=== PATIENT | male | born 1940 | race Caucasian/White ===

== ENCOUNTER 2016-11-01 09:15 | Inpatient (IN) | payer MEDICARE, OTHER ==
[2016-12-28] MEDS ORDERED: IV START KIT ONE (05:36)
[2016-12-28] MEDS ORDERED: LACTATED RINGERS 1,000 ML ONE (05:36)
[2016-12-28] MEDS ORDERED: CEFAZOLIN SODIUM 2 GRAM PREMIX 100 ML IV PRN (07:30)
[2016-12-28] MEDS ORDERED: CEFAZOLIN SODIUM 2 GRAM PREMIX 100 ML IV ONE (08:21)
[2016-12-28] MEDS ORDERED: EPINEPHRINE 1 MG/ML 1ML AMP ONE (09:04)
[2016-12-28] MEDS ORDERED: METHYLENE BLUE 1% 1ML VIAL ONE (09:05)
[2016-12-28] MEDS ORDERED: NERVE BLOCK PROCEDURAL TRAY 1 EACH ONE ×2 (09:47→16:45)
[2016-12-28] MEDS ORDERED: SODIUM CHLORIDE 0.9% FLUSH 10 ML ONE (09:47)
[2016-12-28] MEDS ORDERED: MIDAZOLAM HCL 5 MG/5 ML VIAL ONE (09:48)
[2016-12-28] MEDS ORDERED: BUPIVACAINE 0.25% (PRES FREE) 30 ML VIAL ONE (11:06)
[2016-12-28] MEDS ORDERED: ROCURONIUM BROMIDE 10 MG/ML DOSE IV ONE (12:13)
[2016-12-28] MEDS ORDERED: ROPIVACAINE 0.5% 30 ML VIAL ONE ×2 (12:13→16:44)
[2016-12-28] MEDS ORDERED: PROPOFOL 20 ML IV ONE (12:13)
[2016-12-28] MEDS ORDERED: ON-Q PUMP/ROPIVACAINE 0.2% 450 ML in PREMIX BAG 1 EACH NB PRN (12:22)
[2016-12-28] MEDS ORDERED: LACTATED RINGERS 1,000 ML IV SCH ×2 (12:30→16:45)
[2016-12-28] MEDS ORDERED: EPHEDRINE SULFATE UD SYR 25 MG 25 MG/5 ML SYRINGE IV ONE (13:06)
[2016-12-28] MEDS ORDERED: METOCLOPRAMIDE HCL 5 MG/ML 2ML VIAL ONE (14:08)
[2016-12-28] MEDS ORDERED: MORPHINE SULFATE 10 MG/ML SYRINGE ONE (14:08)
[2016-12-28] MEDS ORDERED: ONDANSETRON 4 MG/2ML 2 ML VIAL ONE (15:25)
--- NOTE | 2016-12-28 15:39 | RAD ---
SHOULDER-LEFT 1 VIEW HISTORY: Left total shoulder arthroplasty intraoperative fluoroscopy. COMPARISONS: Plain films 08/18/2016 FINDINGS: 3 overhead fluoroscopic images are provided for review. These images demonstrate placement of a reverse delta prosthesis. Study is limited with respect to osseous detail given fluoroscopic technique. Fluoroscopy time: 5.2 seconds IMPRESSION: Intraoperative fluoroscopy as above. Please see orthopedist note regarding the procedure for further details.
--- NOTE | 2016-12-28 15:47 | PCMBPN ---
Brief Post Op Note: Date of Procedure: 12/28/16 Preoperative Diagnosis: 1. left shoulder rotator cuff arthropathy, biceps tendonitis, and left index finger mass Postoperative Diagnosis: 1. left shoulder rotator cuff arthropathy, biceps tendonitis and subluxation, and left index finger ganglion cyst Procedure: left shoulder reverse shoulder arthroplasty, biceps tenodesis, and left index finger ganglion cyst excision Surgeon: Ranjeet Pimentel MD Assist: Walker LAND CLEARER Anesthesia: GETA, left intrascalene nerve block and catheter for post-op pain relief, 7mL 0.25% marcaine without epi injected by the left index finger Findings: pt had a left index finger ganglion cyst. The patient had a cemented left DJO RSA (humeral stem) with a 8mm cement restrictor, size 6 humeral stem, neutral socket and neutral liner, 32N glenosphere and standard basline with screws 30mm, 30mm, 18mm and 26 mm Condition: extubated, stable vitals, transferred to pacu Complications: None IV Fluids: 2100 mLs of LR Urine Output: 300 mLs Estimated Blood Loss: 150 mLs Tourniquet Time: [N/A] Specimens: finger mass sent to path Implants: See above Drains: [N/A] PLAN: NWB on the LUE. SLing at all times. Oxycodone for pain control and Ancef x 24 hours post-op
[2016-12-28] MEDS ORDERED: ON-Q PUMP/ROPIVACAINE 0.2% 450 ML ONE (15:57)
[2016-12-28] MEDS ORDERED: MORPHINE SULFATE 4 MG/ML SYRINGE ONE ×2 (16:09→16:27)
[2016-12-28] MEDS ORDERED: ATROPINE SULFATE 0.4 MG/1 ML VIAL IV PRN (16:34)
[2016-12-28] MEDS ORDERED: ONDANSETRON 4 MG/2ML 2 ML VIAL IV PRN ×2 (16:34→18:00)
[2016-12-28] MEDS ORDERED: MEPERIDINE 25 MG/ML SYRINGE IV PRN (16:34)
[2016-12-28] MEDS ORDERED: HYDROMORPHONE HCL 1 MG/ML SYRINGE IV PRN (16:34)
[2016-12-28] MEDS ORDERED: LABETALOL HCL 5 MG/ML 20ML VIAL IV PRN (16:34)
[2016-12-28] MEDS ORDERED: PROMETHAZINE HCL 25 MG/ML VIAL IM PRN (16:34)
[2016-12-28] MEDS ORDERED: NALOXONE HCL 0.4 MG/ML VIAL IV PRN (16:34)
[2016-12-28] MEDS ORDERED: FENTANYL 100 MCG/2 ML VIAL ONE (16:49)
[2016-12-28] MEDS ORDERED: MIDAZOLAM HCL 1 MG/ML 2ML VIAL ONE (16:49)
[2016-12-28] MEDS ORDERED: MORPHINE SULFATE 10 MG/ML SYRINGE IV ONE (16:51)
[2016-12-28] MEDS ORDERED: MORPHINE SULFATE 4 MG/ML SYRINGE IV ONE (17:07)
--- NOTE | 2016-12-28 17:38 | RAD ---
Name: MOLLY GARDNER Exam: Left shoulder Comparison: Multiple prior Clinical history: Postoperative exam Findings: 3 radiographs of left shoulder are submitted. Bone density is within normal limits. There is been arthroplasty of the left glenohumeral joint. Prosthetic components. In normal position. There is no fracture or dislocation. Impression: Left shoulder arthroplasty. Please see operative report for further information.
[2016-12-28] MEDS ORDERED: MAGNESIUM HYDROXIDE 30 ML UDCUP PO PRN (18:00)
[2016-12-28] MEDS ORDERED: DIPHENHYDRAMINE HCL 50 MG/1 ML VIAL IV PRN (18:00)
[2016-12-28] MEDS ORDERED: BISACODYL 10 MG SUP PR PRN (18:00)
[2016-12-28 19:01] VITALS: BMI 30.5
[2016-12-28] MEDS ORDERED: PUMP TUBING ONE (19:29)
[2016-12-28] MEDS: CEFAZOLIN SODIUM 2 GRAM DUPLEX 2 G in Premix (D5W) 50 ml 1 EACH IV SCH (19:35)
[2016-12-28] MEDS: LACTATED RINGERS 1,000 ML IV SCH (19:35)
[2016-12-28] MEDS: DOCUSATE SODIUM 100 MG CAPSULE PO SCH (20:51)
[2016-12-28] MEDS ORDERED: INSULIN ASPART (DOSE) 100 UNITS/1 ML SUB-Q PRN (21:37)
[2016-12-28] MEDS ORDERED: ALBUTEROL SULFATE 200 PUFFS/INH INHALER IH PRN ×2 (21:38→21:52)
[2016-12-28] MEDS: INSULIN GLARGINE (DOSE) 100 UNITS/ML UNIT SUB-Q SCH (22:02)
[2016-12-28] MEDS: PANTOPRAZOLE 40 MG TABLET DR PO SCH (22:02)
[2016-12-28] MEDS ORDERED: ACETAMINOPHEN 500 MG TABLET PO PRN (23:30)
[2016-12-29] MEDS: TIOTROPIUM BROMIDE 18 MCG 5 CAP/INHALER IH SCH ×2 (03:01→09:32)
[2016-12-29] MEDS ORDERED: ALBUTEROL NEB 2.5 MG/3 ML VIAL.NEB NEB PRN (03:14)
[2016-12-29] MEDS ORDERED: ALBUTEROL/IPRATROPIUM 2.5/0.5 MG 3 ML/EACH DOSE NEB PRN (03:15)
[2016-12-29] MEDS: OXYCODONE HCL 5 MG TABLET PO PRN ×4 (03:18→20:52)
[2016-12-29] MEDS: ALBUTEROL/IPRATROPIUM 2.5/0.5 MG 3 ML/EACH DOSE IH SCH ×3 (03:27→20:16)
[2016-12-29] MEDS: CEFAZOLIN SODIUM 2 GRAM DUPLEX 2 G in Premix (D5W) 50 ml 1 EACH IV SCH (03:51)
[2016-12-29] MEDS: LACTATED RINGERS 1,000 ML IV SCH ×3 (05:09→20:44)
[2016-12-29] MEDS: MORPHINE SULFATE 2 MG/ML SYRINGE IV PRN ×2 (05:10→09:32)
[2016-12-29 06:30] LABS: HEMATOCRIT 32.5 % (32.0-52.0); HEMOGLOBIN 10.4 gm/l (14.0-18.0); MEAN CELL VOLUME 94.8 fl (80.0-94.0); MEAN CORPUSCULAR HEMOGLOBIN 30.3 pg (27.0-31.0); RED CELL DISTRIBUTION WIDTH 14.3 % (11.5-14.5)
[2016-12-29 06:51] LABS: CALCIUM 7.8 mg/dL (8.6-10.3)
--- NOTE | 2016-12-29 07:01 | CONS ---
Josh Saleem ADMIT DATE: 12/28/2016 ATTENDING PHYSICIAN: Dr. Ranjeet Pimentel PRIMARY PHYSICIAN: Dr. Naeem Ibarra. CONSULTING PHYSICIAN: Klaus Gamboa M.D. REASON FOR CONSULTATON: Medical management in the perioperative period. HISTOYR OF PRESENT ILLNESS: Mr. Saleem is a 76-year-old male who earlier today underwent a left reverse total shoulder arthroplasty and left index finger ganglion cyst removal by Dr. Pimentel, please see Dr. Pimentel's note for details. Surgery was apparently successful and uncomplicated. I am seeing him in the perioperative period. He is quite sleepy postoperatively still and most of his history is obtained from the chart. REVIEW OF SYSTEMS: Negative with no recent fevers or chills or other symptoms as per the patient. PAST MEDICAL HISTORY: 1. Chronic obstructive pulmonary disease/emphysema. 2. Obstructive sleep apnea on nightly CPAP. 3. Diabetes mellitus type 2 on oral medications. 4. Hypertension. 5. Gastroesophageal reflux disease. 6. Depression. PAST SURGICAL HISTORY: 1. November 2015 he had a left shoulder ORIF secondary to a fracture. 2. September 2015 he had a colonoscopy with polypectomy with mild diverticulosis noted. 3. Left ear surgery in the distant past. 4. Cholecystectomy in the distant past. 5. Appendectomy in the distant past. 6. Tonsillectomy and adenoidectomy in the distant past. FAMILY HISTORY: Significant for coronary artery disease, diabetes, and cancer. SOCIAL HISTORY: Noncontributory with about a 70 pack year history of smoking, though he quit several years ago. No significant alcohol use. OBJECTIVE: VITAL SIGNS: Temperature 99.0, pulse 89 and regular, blood pressure 140/85, respirations 16 and unlabored, O2 sat 95% on 3 liters. GENERAL: This is a well developed, well nourished elderly male. He was still quite somnolent after surgery. He does arouse, but is really unable to answer questions with any clarity. He is in no distress otherwise. HEENT: TM's clear. Oropharynx moist. LUNGS: Clear. HEART: Regular. ABDOMEN: Soft. EXTREMITIES: Left shoulder surgical dressings are clean, dry, and intact. He is neurovascularly intact. SCD's and XOCHILT hose are in place. PREOPERATIVE LABS: Performed 12/22/2016 chemistry panel, sodium 137, potassium 4.6, chloride 100, carbon dioxide 24, BUN of 13, creatinine 1.0, glucose 91. CBC with a white count of 10.8, hemoglobin 13.1, hematocrit 39.6, platelets of 373. Urinalysis was clear. ASSESSMENT: 1. Postoperative day 0 status post left reverse total shoulder arthroplasty by Dr. Pimentel, doing well. Routine postoperative care is per Dr. Pimentel. 2. Diabetes mellitus type 2. We will go ahead and hold his normal metformin and place him on basal bolus while here. We will plan to resume his usual regimen upon discharge. 3. Hypertension. Parameters have been written for all blood pressure medications. 4. Obstructive sleep apnea. Will continue with his usual CPAP. Appears to be at baseline. 5. Gastroesophageal reflux disease appears to be stable. Proton pump inhibitor medications. Will substitute Protonix for his usual omeprazole. 6. Deep venous thrombosis prophylaxis with aspirin as per orthopedic protocol. JOB: [id number] CC: Dr. Naeem Ibarra
--- NOTE | 2016-12-29 09:01 | PDOC43 ---
- Subjective Subjective: Reports Pain Tolerable (Nerve block is working ok for the patient right now), Denies Shortness of Breath, Denies Nausea, Denies Vomiting, Denies Fever - Objective Vital Signs Temperature 100.6 F 12/29/16 07:26 Pulse Rate 98 12/29/16 08:50 Respiratory Rate 18 12/29/16 08:50 Blood Pressure 150/75 12/29/16 07:26 O2 Saturation by Pulse Oximetry 94 12/29/16 08:50 Oxygen Delivery Method Nasal Cannula Oxygen Flow Rate 2 Laboratory 12/29/16 06:05 12/29/16 06:05 12/29/16 12/28/16 12/28/16 06:05 20:57 16:41 RBC 3.43 L MCV 94.8 H MCHC 32.0 L POC Capillary Glucose 118 H 148 H Calcium 7.8 L Active Medication Orders Category Date Time Status Acetaminophen [Tylenol] Med 12/28/16 23:30 Active 500 - 1,000 mg PO Q6H PRN Acetaminophen [Tylenol] Med 12/29/16 09:00 Active 650 mg PO DAILY Albuterol Sulf Neb 2.5mg/3ml [Ventolin Inhalation Med 12/29/16 03:14 Active Solution (Dose)] 2.5 mg NEB Q2H PRN Albuterol Sulfate Mdi [Ventolin Hfa Mdi] Med 12/28/16 21:52 Active 1 - 2 puffs IH Q4H PRN Albuterol/Ipratropium 2.5/0.5 [Duoneb] Med 12/29/16 09:00 Active 3 ml IH BID Albuterol/Ipratropium 2.5/0.5 [Duoneb] Med 12/29/16 03:15 Active 3 ml NEB QID PRN Aspirin (Enteric Coated) [Ecotrin] Med 12/29/16 09:00 Active 325 mg PO DAILY Atropine Sulfate Med 12/28/16 16:34 Active 0.2 mg IV X1 PRN Bisacodyl [Dulcolax] Med 12/28/16 18:00 Active 10 mg OR DAILY PRN Diltiazem HCl Cd [Cardizem Cd] Med 12/29/16 09:00 Active 180 mg PO DAILY Diphenhydramine HCl [Benadryl] Med 12/28/16 18:00 Active 25 - 50 mg IV Q6H PRN Docusate Sodium [Colace] Med 12/28/16 21:00 Active 100 mg PO BID Docusate Sodium [Colace] Med 12/29/16 09:00 Active 250 mg PO DAILY Escitalopram Oxalate [Lexapro] Med 12/29/16 09:00 Active 10 mg PO DAILY FERROUS SULFATE (65 Fe) [Ferrous Sulfate] Med 12/29/16 09:00 Active 325 mg PO DAILY Fluticasone Prop 50 Mcg Nasal [Flonase Nasal [place]] Med 12/29/16 09:00 Active 1 sprays NS BID Hydromorphone HCl [Dilaudid] Med 12/28/16 16:34 Active 0.2 mg IV Q5M PRN Insulin Aspart (Dose) [Novolog (Dose)] Med 12/28/16 21:37 Active See Protocol SUB-Q WM/BEDTIME PRN Insulin Glargine (Dose) [Lantus (Dose)] Med 12/28/16 21:45 Active 20 units SUB-Q Q24H Labetalol HCl [Trandate] Med 12/28/16 16:34 Active 5 mg IV Q5M PRN Lactated Ringers 1,000 ml Med 12/28/16 18:00 Active IV 125 mls/hr Magnesium Hydroxide [Milk of Magnesia] Med 12/28/16 18:00 Active 30 ml PO DAILY PRN Meperidine [Demerol] Med 12/28/16 16:34 Active 25 mg IV Q10M PRN Morphine Sulfate Med 12/28/16 18:00 Active 2 - 4 mg IV Q4H PRN Naloxone HCl [Narcan] Med 12/28/16 16:34 Active 0.2 mg IV X1 PRN Ondansetron 4 mg/2ml Vial [Zofran] Med 12/28/16 18:00 Active 4 - 6 mg IV Q6H PRN Ondansetron 4 mg/2ml Vial [Zofran] Med 12/28/16 16:34 Active 4 mg IV X1 PRN Oxycodone HCl [Roxicodone] Med 12/28/16 18:00 Active 5 - 10 mg PO Q4H PRN Pantoprazole Sodium [Protonix] Med 12/28/16 22:00 Active 40 mg PO Q24H Promethazine HCl [Phenergan] Med 12/28/16 16:34 Active 12.5 - 25 mg IM X1 PRN Sodium Chloride 0.9% Flush [Normal Saline 10ml Flush] Med 12/28/16 18:00 Active 10 - 50 ml IV PRN PRN Sodium Chloride 0.9% Flush [Normal Saline 10ml Flush] Med 12/29/16 01:00 Active 10 ml IV Q8HR Tiotropium [place] 18 Mcg [Spiriva Handihaler] Med 12/29/16 09:00 Active 1 cap IH DAILY Tramadol HCl [Ultram] Med 12/28/16 18:00 Active 50 mg PO TID PRN Valsartan [Diovan] Med 12/29/16 09:00 Active 320 mg PO BID Intake and Output 12/27/16 12/28/16 12/29/16 23:59 23:59 23:59 Intake Total 2100 929 Output Total 550 400 Balance 1550 529 General: Afebrile - Left Upper Extremity Incision: Dressing Clean/Dry/Intact, Well Approximated Motor: Extensor Pollicis Longus: 4/5, Finger Flexors: 4/5, Finger Extensors: 4/5 , Wrist Flexors: 4/5, Wrist Extensors: 4/5, Intrinsics: 4/5 Gross Sensation to Light Touch: Present: Median Nerve, Ulnar Nerve, Radial Nerve Capillary Refill: < 3 Seconds - Problems (1) Status post reverse arthroplasty of left shoulder Status: Acute - Disposition POD#1 s/p left RSA for rotator cuff arthroplathy and left index finger ganglion cyst excision NWB on the LUE. Sling at all times. Ancef x 24 hours post-op. ASA for DVT Appreciate medicine seeing and helping manage the patient. Will wean nerve block today and see how pain control is on oral pain meds
[2016-12-29] MEDS: VALSARTAN 80 MG TABLET PO SCH ×2 (09:29→20:53)
[2016-12-29] MEDS: DOCUSATE SODIUM 250 MG CAPSULE PO SCH (09:29)
[2016-12-29] MEDS: TRAMADOL HCL 50 MG TABLET PO PRN ×2 (09:31→22:49)
[2016-12-29] MEDS: ACETAMINOPHEN 325 MG TABLET PO SCH (09:31)
[2016-12-29] MEDS: DOCUSATE SODIUM 100 MG CAPSULE PO SCH ×2 (09:31→20:52)
[2016-12-29] MEDS: FERROUS SULFATE (65 Fe) 325 MG TABLET PO SCH (09:31)
[2016-12-29] MEDS: DILTIAZEM HCL CD 180 MG CAPSULE PO SCH (09:31)
[2016-12-29] MEDS: ESCITALOPRAM 10 MG TABLET PO SCH (09:32)
[2016-12-29] MEDS: ASPIRIN (ENTERIC COATED) 325 MG TABLET.EC PO SCH (09:32)
[2016-12-29] MEDS: FLUTICASONE PROPIONATE 50 MCG/SPRAY 120 SPRAYS/16 G INH NS SCH ×2 (09:35→20:45)
--- NOTE | 2016-12-29 12:34 | PDOC43 ---
- Subjective Chief Complaint: S/P RSA Subjective: Reports Pain Tolerable, Reports Tolerating Diet Well, Reports Adequate Oral Intake, Denies Shortness of Breath, Denies Cough, Denies Chest Pain, Denies Abdominal Pain, Denies Nausea, Denies Vomiting, Denies Fever, Denies Chills - Objective Vital Signs Temperature 99.7 F 12/29/16 11:40 Pulse Rate 90 12/29/16 11:40 Respiratory Rate 18 12/29/16 11:40 Blood Pressure 104/51 12/29/16 11:40 O2 Saturation by Pulse Oximetry 91 12/29/16 11:40 Oxygen Delivery Method Room Air Oxygen Flow Rate 0 Intake and Output 12/28/16 12/29/16 12/30/16 06:59 06:59 06:59 Intake Total 3029 Output Total 950 Balance 2079 General: Alert, Oriented x3, Cooperative, No Acute Distress HEENT: Atraumatic Lungs: Clear to Auscultation Bilaterally Cardiovascular: Regular Rate and Rhythm Abdomen: Soft, Normal Bowel Sounds, Non-Distended, No Tenderness Extremities: Normal Pulses, No Edema Laboratory 12/29/16 06:05 12/29/16 06:05 Current Medications: Current meds reviewed in EMR. - Problems: Assessment/Plan (1) Status post reverse arthroplasty of left shoulder Status: AcuteAssessment/Plan: Doing well. Post-op as per ortho. ASA for DVT prophylaxis as per ortho protocol. (2) COPD (chronic obstructive pulmonary disease) Qualifiers: COPD type: unspecified COPD Qualifier Code: (J44.9) Chronic obstructive pulmonary disease, unspecified Status: ChronicAssessment/Plan: At baseline. Con't current regimen. (3) BK (obstructive sleep apnea) Status: ChronicAssessment/Plan: Stable. Con't noc CPAP. (4) DM2 (diabetes mellitus, type 2) Qualifiers: Diabetes mellitus complication status: with unspecified complications Status: ChronicAssessment/Plan: Stable. COn't basal/bolus. Resume usual regimen upon d/c. (5) HTN (hypertension) Qualifiers: Hypertension type: essential hypertension Qualifier Code: (I10) Essential (primary) hypertension Status: ChronicAssessment/Plan: Stable. Parameters written for usual BP meds. (6) Depression Qualifiers: Depression Type: unspecified Qualifier Code: (F32.9) Major depressive disorder, single episode, unspecified Status: ChronicAssessment/Plan: Stable, con't usual meds. (7) GERD (gastroesophageal reflux disease) Qualifiers: Esophagitis presence: esophagitis presence not specified Qualifier Code : (K21.9) Gastro-esophageal reflux disease without esophagitis Status: ChronicAssessment/Plan: Stable. Substitute protonix for usual omeprazole. VTE Prophylaxis: ASA.
[2016-12-29] MEDS ORDERED: TAMSULOSIN HCL 0.4 MG CAPSULE.DR PO SCH (22:30)
[2016-12-29] MEDS: INSULIN GLARGINE (DOSE) 100 UNITS/ML UNIT SUB-Q SCH (22:48)
[2016-12-29] MEDS: PANTOPRAZOLE 40 MG TABLET DR PO SCH (22:49)
[2016-12-30] MEDS: OXYCODONE HCL 5 MG TABLET PO PRN ×3 (03:28→15:55)
[2016-12-30] MEDS: MORPHINE SULFATE 2 MG/ML SYRINGE IV PRN (04:06)
[2016-12-30 06:39] LABS: HEMATOCRIT 32.6 % (32.0-52.0); HEMOGLOBIN 10.4 gm/l (14.0-18.0); MEAN CELL VOLUME 95.3 fl (80.0-94.0); MEAN CORPUSCULAR HEMOGLOBIN 30.4 pg (27.0-31.0); MEAN CORPUSCULAR HGB CONC 31.9 g/dl (33.0-37.0); RED CELL DISTRIBUTION WIDTH 14.4 % (11.5-14.5)
[2016-12-30 07:01] LABS: CALCIUM 7.8 mg/dL (8.6-10.3)
[2016-12-30] MEDS: ALBUTEROL/IPRATROPIUM 2.5/0.5 MG 3 ML/EACH DOSE IH SCH (08:14)
--- NOTE | 2016-12-30 09:04 | SURGPATH ---
[facility] [address] [place] [id number] Patient Name: MOLLY GARDNER MR#: [id number] : 1940 Gender: M Specimen #: [id number] Collected: 12/28/2016 Received: 12/29/2016 Reported: 12/30/2016 Submitting Phys: LUIS MIGUEL MCGEE Copy To Phys: [facility] Clinical History / Pre-Operative Diagnosis: GANGLION CYST Specimen Source / Surgical Procedure Performed: LEFT INDEX FINGER Interpretation: GANGLION CYST, LEFT INDEX FINGER, EXCISION: - GANGLION CYST Electronically Signed Out Eagle Kelly M.D. Gross Description: The specimen is received in a formalin filled container labeled with the patient's name and "left index finger ganglion cyst". A pale vail biopsy of fibroconnective tissue is 1.7 x 0.7 x 0.4 cm. The specimen is multiply cross sectioned and entirely submitted as four sections in one cassette. Venkat Peck, PAnnmarie. Microscopic Description: The sections show fibrous connective tissue with myxoid degeneration and pseudocyst formation. 1: [id number] M67.442
[2016-12-30] MEDS: TIOTROPIUM BROMIDE 18 MCG 5 CAP/INHALER IH SCH (09:31)
[2016-12-30] MEDS: ACETAMINOPHEN 325 MG TABLET PO SCH (09:31)
[2016-12-30] MEDS: DOCUSATE SODIUM 100 MG CAPSULE PO SCH ×2 (09:31→09:41)
[2016-12-30] MEDS: VALSARTAN 80 MG TABLET PO SCH (09:32)
[2016-12-30] MEDS: ESCITALOPRAM 10 MG TABLET PO SCH (09:32)
[2016-12-30] MEDS: DILTIAZEM HCL CD 180 MG CAPSULE PO SCH (09:32)
[2016-12-30] MEDS: ASPIRIN (ENTERIC COATED) 325 MG TABLET.EC PO SCH (09:32)
[2016-12-30] MEDS: FERROUS SULFATE (65 Fe) 325 MG TABLET PO SCH (09:32)
[2016-12-30] MEDS: FLUTICASONE PROPIONATE 50 MCG/SPRAY 120 SPRAYS/16 G INH NS SCH (09:36)
[2016-12-30] MEDS: DOCUSATE SODIUM 250 MG CAPSULE PO SCH (09:41)
[2016-12-30 11:33] VITALS: BP 105/50
--- NOTE | 2016-12-30 16:17 | PDOC43 ---
- Subjective Subjective: Reports Pain Tolerable, Denies Chest Pain, Denies Shortness of Breath - Objective Vital Signs Temperature 98.7 F 12/30/16 11:32 Pulse Rate 99 12/30/16 11:32 Respiratory Rate 19 12/30/16 11:32 Blood Pressure 105/50 12/30/16 11:32 O2 Saturation by Pulse Oximetry 93 12/30/16 11:32 Oxygen Delivery Method Room Air Oxygen Flow Rate 0 Laboratory 12/30/16 06:00 12/30/16 06:00 12/30/16 12/30/16 12/30/16 13:12 08:22 06:00 RBC 3.42 L MCV 95.3 H MCHC 31.9 L POC Capillary Glucose 116 H 111 H Calcium 7.8 L 12/29/16 12/29/16 22:29 17:07 RBC MCV MCHC POC Capillary Glucose 124 H 111 H Calcium Active Medication Orders Category Date Time Status Acetaminophen [Tylenol] Med 12/28/16 23:30 Active 500 - 1,000 mg PO Q6H PRN Acetaminophen [Tylenol] Med 12/29/16 09:00 Active 650 mg PO DAILY Albuterol Sulf Neb 2.5mg/3ml [Ventolin Inhalation Med 12/29/16 03:14 Active Solution (Dose)] 2.5 mg NEB Q2H PRN Albuterol Sulfate Mdi [Ventolin Hfa Mdi] Med 12/28/16 21:52 Active 1 - 2 puffs IH Q4H PRN Albuterol/Ipratropium 2.5/0.5 [Duoneb] Med 12/29/16 09:00 Active 3 ml IH BID Albuterol/Ipratropium 2.5/0.5 [Duoneb] Med 12/29/16 03:15 Active 3 ml NEB QID PRN Aspirin (Enteric Coated) [Ecotrin] Med 12/29/16 09:00 Active 325 mg PO DAILY Bisacodyl [Dulcolax] Med 12/28/16 18:00 Active 10 mg AL DAILY PRN Diltiazem HCl Cd [Cardizem Cd] Med 12/29/16 09:00 Active 180 mg PO DAILY Diphenhydramine HCl [Benadryl] Med 12/28/16 18:00 Active 25 - 50 mg IV Q6H PRN Docusate Sodium [Colace] Med 12/28/16 21:00 Active 100 mg PO BID Docusate Sodium [Colace] Med 12/29/16 09:00 Active 250 mg PO DAILY Escitalopram Oxalate [Lexapro] Med 12/29/16 09:00 Active 10 mg PO DAILY FERROUS SULFATE (65 Fe) [Ferrous Sulfate] Med 12/29/16 09:00 Active 325 mg PO DAILY Fluticasone Prop 50 Mcg Nasal [Flonase Nasal [place]] Med 12/29/16 09:00 Active 1 sprays NS BID Insulin Aspart (Dose) [Novolog (Dose)] Med 12/28/16 21:37 Active See Protocol SUB-Q WM/BEDTIME PRN Insulin Glargine (Dose) [Lantus (Dose)] Med 12/28/16 21:45 Active 20 units SUB-Q Q24H Magnesium Hydroxide [Milk of Magnesia] Med 12/28/16 18:00 Active 30 ml PO DAILY PRN Morphine Sulfate Med 12/28/16 18:00 Active 2 - 4 mg IV Q4H PRN Ondansetron 4 mg/2ml Vial [Zofran] Med 12/28/16 18:00 Active 4 - 6 mg IV Q6H PRN Oxycodone HCl [Roxicodone] Med 12/28/16 18:00 Active 5 - 10 mg PO Q4H PRN Pantoprazole Sodium [Protonix] Med 12/28/16 22:00 Active 40 mg PO Q24H Sodium Chloride 0.9% Flush [Normal Saline 10ml Flush] Med 12/28/16 18:00 Active 10 - 50 ml IV PRN PRN Sodium Chloride 0.9% Flush [Normal Saline 10ml Flush] Med 12/29/16 01:00 Active 10 ml IV Q8HR Tamsulosin HCl [Flomax] Med 12/29/16 22:30 Active 0.4 mg PO BEDTIME Tiotropium [place] 18 Mcg [Spiriva Handihaler] Med 12/29/16 09:00 Active 1 cap IH DAILY Tramadol HCl [Ultram] Med 12/28/16 18:00 Active 50 mg PO TID PRN Valsartan [Diovan] Med 12/29/16 09:00 Active 320 mg PO BID Intake and Output 12/28/16 12/29/16 12/30/16 23:59 23:59 23:59 Intake Total 2100 1649 200 Output Total 550 800 400 Balance 1550 849 -200 General: No Acute Distress Lungs: Normal Air Movement Abdomen: No Tenderness Genitourinary: Other (patient was having trouble voiding and 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) Neurological: Alert Psych/Mental Status: Normal Affect - Left Upper Extremity Incision: Dressing Clean/Dry/Intact Motor: Extensor Pollicis Longus: 5/5, Finger Flexors: 5/5, Finger Extensors: 5/5 , Wrist Flexors: 5/5, Wrist Extensors: 5/5, Intrinsics: 5/5, Biceps: 5/5, Triceps: 5/5 Gross Sensation to Light Touch: Present: Median Nerve, Ulnar Nerve, Radial Nerve Capillary Refill: < 3 Seconds (Left index finger-- ganglion cyst removed, coban dressing, actively extends and flexes the finger at PIP joint--10-40) - Problems (1) Status post reverse arthroplasty of left shoulder Status: Acute (2) Ganglion cyst of joint of finger of left hand Status: Acute - Disposition POD#2 s/p left RSA for rotator cuff arthroplathy and left index finger ganglion cyst excision NWB on the LUE. Sling at all times. ASA for DVT Appreciate medicine seeing and helping manage the patient. Anticipate D/C home today or tomorrow when voids and pain well controlled. May change post op dressing to [place] left shoulder and leave Coban wrap on left index finger.
--- NOTE | 2017-01-01 05:11 | OP ---
Josh GARDNER : 1940 [id number] DATE OF ADMISSION: December 28, 2016 PREOPERATIVE DIAGNOSES: Left shoulder rotator cuff arthropathy secondary to large rotator cuff tear and left index finger cyst. POSTOPERATIVE DIAGNOSES: Left shoulder rotator cuff arthropathy secondary to large rotator cuff tear and left index finger cyst. PROCEDURE: LEFT REVERSE SHOULDER ARTHROPLASTY, LEFT SHOULDER. BICEPS TENODESIS AND LEFT INDEX FINGER MASS EXCISION. SURGEON: Ranjeet Pimentel M.D. [employer] DR[employer]: Zandra Ibarra ANESTHESIA: General along with a left interscalene nerve block for postoperative control. FINDINGS: The patient's left index finger had a mass on the dorsal aspect of the finger. Clinically, it appeared to have clear fluid consistent with a ganglion cyst coming off of the extensor tendon. This cyst was dissected out, and the cyst itself was sent to pathology. The patient had a DJO cemented reverse shoulder arthroplasty size 6 humeral stem was placed and an 8 mm cement restrictor and a 32 neutral glenosphere was placed with four baseplate and screws, there was a neutral liner placed. Two of the screws were 30 mm, one of the screws was a 26 mm, the other screw was an 18 mm. INTRAVENOUS FLUIDS: 2100 mL of Lactate Ringer's. URINE OUTPUT: 300 mL ESTIMATED BLOOD LOSS: 150 mL COMPLICATIONS: None. PLAN: The patient will be nonweightbearing on the left upper extremity for six weeks. No active external rotation. The patient will receive 24 hours of clindamycin for postoperative antibiotics and aspirin for DVT prophylaxis. INDICATIONS: The patient is a 76-year-old male who sustained a fall resulting in an acute rupture of his left shoulder rotator cuff tear. The patient was treated at an outside facility where an orthopedic surgeon attempted an open repair. This repair failed resulting in persistent pain and poor function for the patient. The patient was seen in the office and he and I spoke about the risks as well as benefits of surgery versus non-operative treatment. We spoke about the risks of infection, instability, fracture along with perioperative complications of delirium, heart attack, stroke or injury to surrounding nerves or blood vessels. After a lengthy description regarding these risks and others we decided to proceed with surgery. PROCEDURE DESCRIPTION: The patient was seen in the preoperative area where I confirmed that the left side was the correct side and that our planned procedure was a reverse shoulder arthroplasty and left index finger cyst excision. The patient agreed that this was the planned procedure and I confirmed that the consent matched our proposed procedure and that the consent was signed by both myself and the patient. I confirmed that the H&P was updated. The patient was then seen by the anesthesia team who talked to him about general anesthesia along with an ultrasound guided interscalene nerve block for postoperative pain control. The patient allowed them to have this block performed and under ultrasound guidance this was performed without incident or complication. The patient was then brought from the preoperative area to the operating theater where he was transferred from an operating room bed to a beach chair that was in a supine position. The safety belt was placed and SCDs were placed on bilateral lower extremities for intraoperative DVT prophylaxis. Next, the patient was placed asleep under general anesthesia and intubated. The patient then had all bony prominences well padded and he was placed upright in a beach chair position with his neck in neutral position. Hips flexed at 45 degrees, knees flexed at 30 degrees, and his nonoperative arm or right arm in the rested neutral position. At this point the bed was turned. I confirmed that we could get an appropriate x-ray and the patient's left upper extremity was prepped and draped in sterile fashion, first with a chlorhexidine scrub and then prep. Since the patient had two basic procedures I elected to do to separate preps and address my attention to the left index finger first. At this point with the left hand draped out so that I could expose the index finger, I samira a line on the lateral border just distal to the MCP joint to dissect out this cyst and left finger mass. Prior to making an incision I performed a final time out confirming that the left side the correct side and that we planned to do a left index finger cyst excision along with a left reverse shoulder arthroplasty. I confirmed that clindamycin had been given and that the patient's procedure matched our proposed consent on the consent form. I confirmed that we had all of the necessary equipment and we were ready to begin. At this point 0.25% Marcaine without epinephrine was injected by the index finger performing a digital block. I then used an Esmarch to exsanguinate the left hand and forearm and the arm tourniquet was elevated. I used a #15 blade to incise the skin. I then carefully dissected out the cyst with a small 90 degree right angle clamp taking care not to puncture the cyst. Once it was dissected out I could see that the stock was coming off the sheath itself. I then broke the cyst and a clear viscous fluid came out synonymous with a ganglion cyst. This pseudo-cyst was then excised leaving the extensor tendon intact. I took the finger through a range of motion, I was happy with its appearance. This cyst was mainly on the dorsal aspect of the finger. At this point the tourniquet was dropped. It had been elevated for approximately 10 minutes at 250 mmHg and the incision was then closed with interrupted vertical mattresses with #3-0 Nylon. With this finger dissection now completed, I then did a repeat prep using a chlorhexidine scrub and then prep on the left upper extremity. The patient was draped out exposing the left shoulder. With this then performed I then marked the deltopectoral interval with an 8 cm incision for my approach to the left shoulder. Ioban was then placed on the top as well as through the axilla prepping out the axilla and covering it with plastic. At this point I then used a #10 blade to incise the skin making an 8 cm incision on the front of the shoulder. I then placed two Gelpi retractors using a Bovie cautery to gain good hemostasis with subcutaneous bleeding. I then dissected out the cephalic vein taking it medially and raising up the deltoid placing a Morgan retractor. The patient had a previous open attempt at a rotator cuff repair. There were multiple scar tissues laterally restricting the range of motion. This had to be released to get better access to the lateral aspect of the greater tuberosity. With the Morgan retractor in place, I identified the long head of the biceps which was medially subluxated. I then tagged it to the upper border of the subscapularis performing a biceps tenodesis. The biceps was then transected and I then examined the rotator cuff. There was no sign of any repair. There were multiple loose anchor fragments that could be visible. The patient only had a thin layer of subscapularis which would be used to be repaired at the end of the case. At this point the subscapularis remnant and capsule was tagged with Ethibond sutures. A subscapularis tenotomy was then performed. I then placed a large sharp Hohmann on the inferior border of the neck and dislocated the humeral head. I then used the DJO guide to make the humeral head cut in approximately 30 degrees of retroversion. Retractors were placed protecting the conjoined tendon as this was performed. I then removed the inferior humeral head osteophytes and placed 6 mm and 8 mm reamers into the canal. I then placed a 6 mm broach, looked at its appearance of poor bone quality, I thought that the patient most likely will need to have a cemented implant. With the [address], I turned my attention to the glenoid. I placed a posterior [place] retractor posteriorly a Cobra anteriorly. I then identified the labrum and was ready to prepare for the glenosphere placement. Next, I drilled a central hole, the length of the hole was 28 mm which would fit my 30 mm baseplate central screw. I then placed the tap and proceeded to place the standard baseplate for the DJO reverse implant. After this was placed, I then proceeded to place four circumferential locking screws. These were placed without incident or complication. Once these locking screws were placed I selected a 32 neutral glenosphere, this was placed. I then a re-dislocated the humerus, placed a neutral socket and liner and evaluated my stability. I thought that it was appropriate, I could elevate to 120 degrees, abduct to 100 degrees without any subscapularis repair. At this point I removed the humeral broach re-dislocating the humerus and then made preparations for placing the humeral implant. To do this first I placed an 8 cm cement restrictor. I drilled four holes for my subscapularis repair. These sutures would be placed around the implant itself. I then placed in epinephrine soaked sponge in the humeral canal. My surgical first assistant then prepared the cement which was impregnated with methylene blue. Once this high this high viscosity cement was prepared we were ready to cement in the final implant. I asked for a 6 mm humeral stem to be opened. Next, with the DJO AltiVate humeral stem selected I hand packed the cement into the canal. I then placed the implant along with a liner. Once this was hardened I reduced the shoulder and proceeded to place with a free needle my circumferential sutures through the undersurface of the subscapularis. The axillary nerve could be palpated inferiorly as I performed a subscapularis repair with the arm in approximately 30 degrees of external rotation. At this point I confirmed good hemostasis and was ready to close. I finished irrigating the wound. Closure was performed by placing Ethibond sutures in the deltopectoral interval closing with interrupted #0 Vicryl, interrupted #2-0 Vicryl, followed by a running Monocryl suture and a fibrin mesh topical dressing. DSD was applied. The patient was placed in a sling. He was taken out of the beach chair position without complication. I placed a dressing on the finger which included Xeroform, 4x4 and Coban. This was placed gently so that it would not be too tight. The patient was placed in a sling and was comfortable when he was extubated. In the recovery room he had good pain control secondary to his interscalene nerve block. I spoke to the patient's family regarding this surgery attempting to answer all of the questions. The plan will be for the patient to be nonweightbearing on the left upper extremity. No external rotation and we will start pendulums in one week. We will continue to watch the patient closely for any signs of any perioperative complications. I gave the patient aspirin for DVT prophylaxis and clindamycin for 24 hours postoperatively. Job [id number] CC: [facility]
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
--- NOTE | 2017-01-31 09:03 | PDOC5 ---
ADMIT DATE: 12/28/16 DISCHARGE DATE: 12.30.2016 ADMISSION DIAGNOSES: left shoulder osteoarthritis, biceps tendonitis, left and left index finger ganglion cyst PROCEDURES PERFORMED THIS HOSPITALIZATION: left reverse shoulder arthroplasty, biceps tenodesis, and left index finger ganglion cyst excision SURGEON:Ranjeet Pimentel MD CONSULTATIONS: None BRIEF HISTORY:This is a 76 year old yr old male with left shoulder osteoarthritis and a left index finger ganglion cyst. BRIEF HOSPITAL COURSE: The patient is a 76 yr old male with left shoulder pain and a painful left index finger consistent with a history of having osteoarthritis of the left shoulder joint and a left finger ganglion cyst. The patient continued to have pain despite non-op treatment. He elected to have a left index finger ganglion cyst excision and a shoulder arthroplasty on 12.28.2016. At the time of the surgery the patient had a rotator cuff tear so I elected to convert him to a left reverse shoulder replacement. His ganglion cyst was removed at the same time. The patient had 24 hours of antbiotics and was on ASA for DVT prophylaxis. POD#1 his intrascalene nerve block came out and he was confused from his narcotics. This improved on POD#2 and his dressing was changed and he was discharged to home wearing his left shoulder sling at all times. He will follow-up in the office in 7 days for a wound check. - Discharge Diagnosis (1) Status post reverse arthroplasty of left shoulder Status: Acute - Discharge Plan Disposition: Home Follow-Up: Ranjeet Pimentel MD [Staff Physician] - 01/05/17 1:00 pm
== END 2016-12-30 16:20 | disposition home or self-care (01) | DRG 483 ==
LOC: OR 12-28 07:40 → MS 12-28 18:00
PROVIDERS: ADMIT Orthopaedic Surgery; ATTEND Orthopaedic Surgery
PROC: 0RRK00Z Replacement of Left Shoulder Joint with Reverse Ball and Socket Synthetic Substitute, Open Approach (ICD-10-PCS; principal; 2016-12-28)
PROC: 0LM20ZZ Reattachment of Left Shoulder Tendon, Open Approach (ICD-10-PCS; 2016-12-28)
DX: M19.012 Primary osteoarthritis, left shoulder (principal); J44.9 Chronic obstructive pulmonary disease, unspecified; M75.22 Bicipital tendinitis, left shoulder; M67.442 Ganglion, left hand; G47.33 Obstructive sleep apnea (adult) (pediatric); E11.9 Type 2 diabetes mellitus without complications; Z79.84 Long term (current) use of oral hypoglycemic drugs; I10 Essential (primary) hypertension; K21.9 Gastro-esophageal reflux disease without esophagitis; F32.9 Major depressive disorder, single episode, unspecified; Z87.891 Personal history of nicotine dependence